=== PATIENT | male | born 2000 | race Caucasian/White ===

== ENCOUNTER → 2021-12-01 | Outpatient (CLI) | payer BC ==
--- NOTE | 2021-12-01 15:12 | Diagnostic Imaging Report ---
PROCEDURE: US Scrotum. TECHNIQUE: Multiple real-time grayscale images were obtained over the scrotum in various projections bilaterally. INDICATION: Palpable fullness right testicle. Testicular parenchyma appeared normal bilaterally, the right 4.3 cm, the left 4.4 cm. Parenchymal echotexture homogenous and normal. Color Doppler blood flow is normal. There is a minute 2 mm benign epididymal head cyst on the right. Epididymides are otherwise unremarkable. No findings of epididymitis. Corresponding to the region of pain and palpable abnormality, there is a small to moderate right-sided varicocele. No hernia. IMPRESSION: Right varicocele accounts for the presenting clinical complaint. Normal testicles. No findings of neoplasm. No hernia. Small simple right hydrocele and tiny benign right epididymal head cyst Dictated by: Dictated on workstation # [id number]
== END ==
LOC: RAD 12:00
PROVIDERS: ATTEND Nurse Practitioner Family
DX: I86.1 Scrotal varices (principal)
CPT/HCPCS: 76870